=== PATIENT | male | born 1980 | race Caucasian/White ===

== ENCOUNTER 2024-05-15 07:35 | Day surgery (SDC) | payer OTHER, SELFPAY ==
[2024-05-15] VITALS (11 sets, daily range): BP systolic 112–125; BP diastolic 78–86; BMI 23.6
[2024-05-15] MEDS: LOW STRENGTH ASPIRIN 81 MG PO (08:47)
[2024-05-15 08:54] LABS: Glucose - Point of Care 132 mg/dl (70-99)
--- NOTE | 2024-05-15 09:51 | ITS.CL.CATH ---
[facility] - Catheterization
Cardiac Catheterization
Procedure Report:
CARDIAC CATHETERIZATION REPORT
Date of Procedure: 05/15/2024
Referring: Luis Barnes MD
Indication: Chest pain with abnormal routine exercise stress test
�
HEMODYNAMIC DATA
AO: 137/80
LV: 137/17
�
LEFT VENTRICULOGRAPHY: Normal left ventricular wall motion with EF 59%
�
CORONARY ANGIOGRAPHY
Dominance: Right
Left Main: Normal
LAD: Minimal
Circumflex: Normal
RCA: Normal
�
Closure Device: None-the procedure was performed via the right radial artery
�
Radiation (mGy): 128
DAP (cm2.Gy): 10.2
Fluoroscopy time: 1.4 minutes
�
CONCLUSIONS
1:�Normal left ventricular wall motion with EF 59%
2:�Normal coronary arteries
�
�
Copy to: Luis Barnes MD, Kristofer Mcgill MD
�
Trevor Carter MD, LOCATED WITHIN [facility], [facility]
== END 2024-05-15 12:35 | disposition home or self-care (01) ==
LOC: CATH 07:35
PROVIDERS: ATTENDING PHYSICIAN Internal Medicine Cardiovascular Disease; FAMILY PHYSICIAN Internal Medicine; OTHER PHYSICIAN Internal Medicine Cardiovascular Disease
DX: R07.9 Chest pain, unspecified (principal); R94.39 Abnormal result of other cardiovascular function study; Z79.84 Long term (current) use of oral hypoglycemic drugs; Z79.899 Other long term (current) drug therapy
CPT/HCPCS: 82962; 93005; 93458; C1894; Q9967